=== PATIENT | male | born 2000 | race African-American/Black ===

== ENCOUNTER 2020-03-23 21:18 | Emergency (ER) | payer OTHER ==
[~2020-03-23] VITALS: Ht 182.9 cm; Wt 59.0 kg
--- NOTE | ~2020-03-23 | EMS ---
[facility] [address] [place] [address] EMS [facility] Room #: REG M.R.#: [id number] Admission: 03/23/20 Attend Phys: Discharge: Date of : [birth year] Report #: [id number] THIS REPORT FOR: //name// Report Transmitted: 03/23/2020 22:31 EMS Care Summary [place], [place]/[facility] Incident [id number] @ 03/23/2020 20:45 Incident Location [address] [place] [id number] Patient IRINA UNKNOWN Male, 19 Years 2000 Patient Address unknown Chief Complaint Bystanders called, pt wouldn't answer questions Disposition Transported No Lights/[employer] Dispatch Reason Overdose/Poisoning/Ingestion Transported To [facility] Narrative Called for a psych. Upon arrival, pt was running around [place] a [place]. When we pulled up towards him, he flagged us down. [facility] arrived. Pt climbed into the back of the ambulance w/o incident. He wouldn't not answer any questions, he just sat there with a blank stare as if he was on some form of recreational substance. Vitals obtained. Pt taken to [facility] ER. En route: no changes. RR to [facility]. Arrived: pt taken to ER #2, pt care & report to ER staff. Initial Vitals @20:59P: 134,R: 20,BP: 142/78,Pain: 0/10,GCS: 14,SpO2: 98,Revised Trauma: 12, Assessments [facility] [address] [place] [address] EMS Patient Care Report Name: GEENA NO Room #: REG M.R.#: [id number] Admission: 03/23/20 Attend Phys: Discharge: Date of : [birth year] Report #: [id number] @20:55MENTAL:Other,Person Oriented,SKIN:HEENT:LUNG SOUNDS:ABDOMEN:PELVIS//GI:EXTREMITIES:PULSE:Radial: 2+ Normal,NEURO: Impression Behavioral/psychiatric episode Procedures @20:55ALS AssessmentResponse: UnchangedFailed Timeline 20:42,Call Received 20:42,Dispatch Notified 20:45,Dispatched 20:47,En Route 20:54,On Scene 20:55,At Patient 20:55,ALS Assessment,Response: UnchangedFailed, 20:59,BP: 142/78 M,PULSE: 134,RR: 20 R,SPO2: 98 Ox,ETCO2: ,BG: ,PAIN: 0,GCS: 14, 21:06,Depart Scene 21:10,At Destination 21:27,Call Closed Disclaimer v1.1 Copyright 2020 [employer] This EMS Care Summary contains data elements from the applicable legal record (which may be displayed differently). It is designed to provide pertinent information for the following purposes: continuity of care, clinical quality, and state data reporting. The complete legal record is available to ED staff and administrators of the receiving hospital in [email or web address] Patient Tracker. All data is provided "as is."
[2020-03-23] MEDS ORDERED: RISPERDAL0.5 MG PO (23:23)
[2020-03-23 23:28] LABS: ABSOLUTE NEUTROPHILS 8.5 thou/uL (1.4-8.2); BASOPHILS 0.4 % (0.0-2.0); EOSINOPHILS 0.1 % (0.0-3.0); HEMOGLOBIN 13.8 gm/dL (14.0-18.0); LYMPHOCYTES 15.4 % (24.0-44.0); MCH 29.9 pg (26.0-34.0); MCHC 34.6 g/dL (28.0-37.0); MCV 86.4 fL (80.0-100.0); MONOCYTES 5.4 % (1.0-8.0); PLATELET COUNT 253 thou/uL (150-400); POLYS 78.7 % (36.0-66.0); RBC 4.63 mil/uL (4.50-6.00); RDW 13.3 % (10.5-14.5); WBC 10.9 thou/uL (4.0-11.0)
[2020-03-23 23:35] LABS: CALCIUM 10.4 mg/dL (8.5-10.1); CREATININE 1.2 mg/dL (0.7-1.3); POTASSIUM 3.8 mmol/L (3.5-5.1)
[2020-03-23 23:42] LABS: ALBUMIN 5.2 g/dL (3.4-5.0); TOTAL BILIRUBIN 1.4 mg/dL (0.2-1.0); TOTAL PROTEIN 7.9 g/dL (6.4-8.2)
[2020-03-24 03:48] LABS: URINE BILIRUBIN NEGATIVE (Negative); URINE BLOOD NEGATIVE (Negative); URINE CLARITY CLEAR; URINE COLOR YELLOW; URINE GLUCOSE-RANDOM* NEGATIVE (Negative); URINE KETONES 2+ (Negative); URINE LEUKOCYTES-REFLEX NEGATIVE (Negative); URINE NITRITE-REFLEX NEGATIVE (Negative); URINE PROTEIN (DIPSTICK) TRACE (Negative); URINE SPECIFIC GRAVITY 1.025 (1.005-1.035); URINE UROBILINOGEN 0.2 E.U./dl (0.2-1.0)
[2020-03-24 03:58] LABS: AMP/METHAMP Negative (Negative); BARBITURATES Negative (Negative); BENZODIAZEPINES Negative (Negative); COCAINE Negative (Negative); METHADONE Negative (Negative); OPIATES Negative (Negative); PCP Negative (Negative)
--- NOTE | 2020-03-24 10:44 | EKG ---
[facility] [address] ELECTROCARDIOGRAM REPORT Name: IRINA ENCARNACION Room #: REG [facility].#: [id number] Admission: 03/23/20 Attend Phys: Discharge: Date of : [birth year] Report #: [id number] THIS REPORT FOR: cc: TERESE - Elicia family physician/PCP TERESE - Elicia family physician/PCP Guanaco Cardenas MD [facility] THIS REPORT FOR: //name// [facility] ED Test Date: 2020-03-23 Test Time: 22:28:38 Pat Name: IRINA ENCARNACION Department: Room: Gender: Pbx Repairer: : 2000 Requested By: Obinna Quijano Order Number: [id number] MD: Guanaco Cardenas Measurements Intervals [place] Rate: 126 P: 74 MD: 148 QRS: 85 QRSD: 97 T: -1 QT: 304 QTc: 441 Interpretive Statements Sinus tachycardia No previous ECG available for comparison Electronically Signed On 03-24-2020 10:44:27 [employer] by Guanaco Cardenas [email or web address] <ELECTRONICALLY SIGNED> By: Guanaco Cardenas MD, FACC 03/24/20 1044 [id number] Guanaco Cardenas MD, FACC /EPI
[2020-03-25 13:48] VITALS: BP 129/89
== END 2020-03-25 15:52 | disposition still patient (30) ==
LOC: ER 21:18
PROVIDERS: Emergency Medicine
DX: F20.9 Schizophrenia, unspecified (principal); Z20.828 Contact with and (suspected) exposure to other viral communicable diseases; Z88.8 Allergy status to other drugs, medicaments and biological substances; Z79.899 Other long term (current) drug therapy; Z88.0 Allergy status to penicillin